=== PATIENT | female | born 1950 | race Caucasian/White ===

== ENCOUNTER → 2016-10-03 | Outpatient (CLI) | payer OTHER | LOC: BRMIMAGING 14:14 | PROVIDERS: ATTEND Radiology Diagnostic Radiology | DX: Z12.31 Encounter for screening mammogram for malignant neoplasm of breast (principal) | CPT/HCPCS: G0202 ==

== ENCOUNTER → 2017-11-12 | Outpatient (CLI) | payer OTHER | LOC: BRMIMAGING 13:35 | DX: Z12.31 Encounter for screening mammogram for malignant neoplasm of breast (principal) ==